=== PATIENT | male | born 1990 | race Two or more races ===

== ENCOUNTER 2020-02-16 10:39 | Emergency (ER) | payer OTHER ==
[~2020-02-16] VITALS: Ht 170.2 cm; Wt 77.3 kg
[2020-02-16 10:41] VITALS: BP 134/72
[2020-02-16] MEDS ORDERED: GABA-1181 PO (10:43)
[2020-02-16] MEDS ORDERED: LIDOCAINE/PF 1% 5 ML VIAL INJ ONE (11:00)
[2020-02-16] MEDS ORDERED: PERTUSS(ACELL),DIPH,TET VAC/PF 0.5 ML VIAL IM ONE (11:00)
[2020-02-16] MEDS ORDERED: ACETAMINOPHEN 500 MG TABLET PO ONE (11:00)
[2020-02-16] MEDS ORDERED: BACITRACIN 0.9 GM PACKET OINTMENT TP ONE (11:00)
== END 2020-02-16 12:00 | disposition home or self-care (01) ==
LOC: EMS 10:40
DX: S01.112A Laceration without foreign body of left eyelid and periocular area, initial encounter (principal); W01.0XXA Fall on same level from slipping, tripping and stumbling without subsequent striking against object, initial encounter; Y93.01 Activity, walking, marching and hiking; Y92.89 Other specified places as the place of occurrence of the external cause; Y99.0 Civilian activity done for income or pay
CPT/HCPCS: 12013; 90471; 90715; 99283; J2001